=== PATIENT | female | born 1980 | race Caucasian/White ===

== ENCOUNTER 2019-06-05 16:05 | Outpatient (REF) | payer BC, SELFPAY ==
--- NOTE | 2019-06-05 15:17 | PAPFT_PTH ---
PATIENT: WANDA BHAT LOC: [facility] U#:[id number] AGE/SX: 38/F ROOM: RE06/05/[address]: Sallie Prabhakar NP : [id number] BED: DIS: 06/05/2019 SPEC #: [id number] RECD: 06/05/19 18:07 STATUS: STEFFEN REKurtis #: [id number] JULIETH: 06/05/19 15:[address]: Sallie Prabhakar NP DEPT: [facility] Cytology RECD BY: Hoda Salguero ENTERED: 06/05/19 18:07 SP TYPE: PAPFT OT DR: Lucy Ma Tissues: 1 - CX/ENDOCX FOR PAP SMEARS Procedures: PAP THIN PREP/UVM Screening HPV DNA PROBE Comments: [id number]
== END 2019-06-05 16:25 ==
LOC: LBN 16:05
PROVIDERS: PCP Family Medicine; Visit Provider Nurse Practitioner Women's Health
DX: Z12.4 Encounter for screening for malignant neoplasm of cervix (principal); Z11.51 Encounter for screening for human papillomavirus (HPV)
CPT/HCPCS: 88142; 87624

== ENCOUNTER 2019-12-09 19:57 | Emergency (ER) | payer OTHER, SELFPAY ==
[2019-12-09 20:03] VITALS: BP 140/83; PULSE 89; RESP 16; TEMP 36.5; O2SAT 97
--- NOTE | 2019-12-09 21:50 | ED.GENADUL_ITS ---
Discharge Plan Disposition Patient Disposition: HOME Condition: Stable Discharge Details Chief Complaint: Orthopedic Clinical Impression: Crush injury of hand Primary Care Provider: Lucy Ma ED Provider: Elida Bailey Home Meds and New Rx's Prescriptions: No Action Mirena 20 mcg/24 hours (5 yrs) 52 mg intrauterine device 1 device IY ONCE Qty: 1 RF: 0 Discharge Instructions Instructions: Acute Wound Care (ED), Crush Injury (ED) Additional Instructions: Wash area with soap and water twice daily. Pat dry completely or allow to air dry prior to applying antibiotic ointment to wounds. Keep wound covered as discussed. Ice to the area for swelling. Elevate arm for swelling. Advil or Tylenol for pain as discussed. Expect improvement in the next 5 to 7 days. If not improving please consider x- ray of your hand. Recheck with primary care doctor if not improving. Return to the emergency room for any concerns, signs of infection of your wounds, persistent pain or if needed sooner Medical Decision Making Is a healthy 39-year-old patient presenting to the emergency room for complaints of soft tissue injury to the palmar aspect of her right hand after her palm and pinky were pinched when adjusting uneven parallel bars at gymnastics this evening. Patient sustained superficial wounds to the palm as well as the palmar aspect of the fifth digit. Bleeding is controlled. Patient did clean wounds prior to arrival. Patient's tetanus is not up-to-date. Patient does not have any concern of bony injury. After initial evaluation patient was offered an x- ray given that she does have ecchymosis, swelling and discomfort yet she declines given she is a very low suspicion based on her mechanism of injury. Wounds cleaned and irrigated. No obvious deep extension of wounds noted on hand. No sutures indicated given depth of wound. Will recommend wound management. Antibiotic ointment and dressings placed. Discussed wound management, expectations of improvement, signs of complication. Patient reports her understanding. The patient was stable and requested discharge. Prior to discharge, my usual and customary return precautions were reviewed with the patient - this included follow-up instructions and reasons to return to the Emergency Department if conditions worsens, does not improve as expected, or other new concerns arise. HPI General Date/Time Provider Initiated Documentation: 12/09/19 20:12 . HPI Narrative: Is a 39-year-old patient presenting to the ER this evening for a injury to her right hand. Patient is a assistant tennis coach and when adjusting the bars the bar slid and pinched her hand. Patient presents with wounds to the palmar aspect of the radial fat pad as well as the fifth digit. Patient is not concerned with the possibility of fracture of the bones as she reports the bars pinched the skin. Patient concerned if there is a deeper wound. Patient's tetanus is unknown. Patient denies numbness, tingling or weakness. Patient reports full range of motion of the hand. No other concerns or complaints. Injury occurred approximately 1 to 2 hours prior to arrival. Related Data Home Medications Medication Instructions Recorded Confirmed levonorgestrel 20 mcg/24 hours (5 1 device IY ONCE #1 each 06/11/19 06/11/19 yrs) 52 mg intrauterine device Previous Rx's Medication Instructions Recorded levonorgestrel 20 mcg/24 hours (5 1 device IY ONCE #1 each 06/11/19 yrs) 52 mg intrauterine device Allergies Allergy/AdvReac Type Severity Reaction Status Date / Time No Known Allergies Allergy Verified 12/09/19 20:06 General Stated Complaint: Orthopedic KATHY: 3 Review of Systems All systems reviewed & are unremarkable except as noted in HPI and below Constitutional Constitutional: Denies fatigue, Denies fever(s), Denies headache(s) and Denies malaise ENT Ears, Nose, Mouth, and Throat: Denies headache(s) Musculoskeletal Musculoskeletal: Denies deformity, Denies limited range of motion, Denies muscle weakness, Denies numbness and Denies tingling Integumentary/Breasts Skin/Breast: Reports wounds Neurologic Neurologic: Denies headache(s), Denies numbness and Denies tingling Endocrine Endocrine: Denies fatigue [facility] Medical History IUD surveillance (Acute) Family History (Updated 06/05/19 @ 15:37 by Sallie Prabhakar NP) Father Colon polyp Social History Smoking/Tobacco Use Status: Never Substance use type: does not use Do you feel safe at home: Yes Do you feel safe in your relationship?: Yes Female Reproductive History Menstrual control method: progestin IUCD History History 2 Para 2 Hx # Term Pregnancies Multiple births Hx # Pregnancies Ectopic pregnancies AB induced Hx Number of Living Children AB spontaneous Exam Narrative Exam Narrative: CONST: Healthy appearing patient, in no acute distress. Well hydrated. Alert and oriented. MUSCULOSKELETAL: Normal Gait. FROM of right hand. No wrist pain with palpation, forearm pain with palpation. No sign of proximal injury. Patient with a mild amount of ecchymosis noted to the fifth digit. No bony pain with palpation. Flexion extension intact. Nothing to indicate tendon injury. No palpable bony pain in the hand noted. Mild soft tissue pain with palpation at the ulnar aspect palm. Patient with a wound approximately 2 cm in length, superficialy 1 cm wide paralleling healthy appearing tissue and another wound similar approximately 2 cm in length few millimeters wide. No deep extension of wounds. Distal neurovascularly intact. SKIN: Normal. Dry. No rashes. See above NEURO: Alert and awake. Speech clear. PSYCH: Normal affect. Cooperative. Course Vital Signs Vital signs: Vital Signs Temperature 36.5 C 12/09/19 20:03 Pulse 89 12/09/19 20:03 Respiratory Rate 16 12/09/19 20:03 Blood Pressure 140/83 12/09/19 20:03 Pulse Oximetry 97 12/09/19 20:03 Temperature 36.5 C 12/09/19 20:03 Temperature Source Temporal Artery Scan 12/09/19 20:03 Pulse 89 12/09/19 20:03 Respiratory Rate 16 12/09/19 20:03 Respiratory Effort 12/09/19 21:00 Blood Pressure 140/83 12/09/19 20:03 Blood Pressure Position Sitting 12/09/19 20:03 Pulse Oximetry 97 12/09/19 20:03 Oxygen Delivery Method Room Air 12/09/19 20:03 Oxygen Flow Rate 0 12/09/19 20:03
== END 2019-12-09 21:50 | disposition home or self-care (01) ==
PROVIDERS: Emergency Provider Physician Assistant; PCP Family Medicine
DX: S67.22XA Crushing injury of left hand, initial encounter (principal); W23.0XXA Caught, crushed, jammed, or pinched between moving objects, initial encounter; Y99.0 Civilian activity done for income or pay
CPT/HCPCS: 90471; 99284; 99283

== ENCOUNTER 2020-07-11 01:16 | Outpatient (CLI) | payer OTHER, SELFPAY ==
--- NOTE | 2020-07-11 12:00 | DI.MAMMO_ITS ---
EXAM: MG MAMMO SCREENING CLINICAL HISTORY: screening TECHNIQUE: Mammograms were interpreted according to the usual protocol including computer analysis w [employer] CAD system, tomosynthesis and C-view imaging. COMPARISON: FINDINGS: The breasts are extremely dense which may limit detection of malignancies. No dominant mass or clumped microcalcification is identified in either breast. Today's examination i s a baseline examination. IMPRESSION: No specific evidence of malignancy at this time. Routine screening examinations suggested at yearly intervals in this age group according to the ACR guidelines. BI-RADS Category 1 - Negative Breast Density - Category D - Extremely dense
== END 2020-07-11 01:36 ==
PROVIDERS: PCP Family Medicine; Visit Provider Nurse Practitioner Family
DX: Z12.31 Encounter for screening mammogram for malignant neoplasm of breast (principal); R92.2 Inconclusive mammogram
CPT/HCPCS: 77063; 77067